=== PATIENT | female | born 1995 | race Caucasian/White ===

== ENCOUNTER → 2024-02-05 10:43 | Outpatient (CLI) | payer OTHER, SELFPAY ==
[2024-02-05 11:35] LABS: Add Manual Diff / Slide Review NO; Basophils Absolute Auto 0 /uL (0-100); Basophils Percent Auto 0.5 % (0-2); Eosinophils Absolute Auto 100 /uL (0-450); Eosinophils Percent Auto 1.1 % (2-4); Hematocrit 39.1 % (36-46); Hemoglobin 13.5 g/dL (12.0-16.0); Lymphocytes Absolute Auto 2100 /uL (1100-4500); Lymphocytes Percent Auto 20.1 % (25-40); Mean Corpuscular HGB Conc 34.6 % (30-36); Mean Corpuscular Hemoglobin 31.2 PG (26-34); Monocytes Absolute Auto 500 /uL (0-900); Monocytes Percent Auto 5.2 % (3-14); Neutrophils Absolute Auto 7600 /uL (1500-7000); Neutrophils Percent Auto 73.1 % (50-75); Platelet Count 379 X10^3/uL (150-400); Red Blood Cell Count 4.35 X10^6/uL (4.0-5.2); Red Cell Distribution Width 12.9 % (11.6-14.8); White Blood Cell Count 10.3 X10^3/uL (4.5-11.0)
[2024-02-05 11:40] LABS: Hemoglobin A1C% w Est Avg Glu 4.8 % (4.0-6.0)
[2024-02-05 11:59] LABS: Natera Collection Specimen Collected
[2024-02-05 12:20] LABS: Hepatitis B Surface Antigen NEGATIVE s/c (NEGATIVE)
[2024-02-05 12:36] LABS: HIV 1 & 2 Ab/Ag 4th Gen Combo NEGATIVE (NEGATIVE); Hep C Virus Ab w/Reflex Quant NEGATIVE s/c (NEGATIVE)
[2024-02-06 11:41] LABS: RPR Screen Non Reactive (Non Reactive); Varicella IgG Antibody 591 index (Immune >165)
== END ==
PROVIDERS: Referring Provider Student in an Organized Health Care Education/Training Program; Visit Provider Student in an Organized Health Care Education/Training Program
DX: Z34.81 Encounter for supervision of other normal pregnancy, first trimester (principal); N92.6 Irregular menstruation, unspecified; Z83.3 Family history of diabetes mellitus; Z3A.11 11 weeks gestation of pregnancy
CPT/HCPCS: 36415; 80055; 83036; 86787; 86803; 86850; 86900; 86901; 87086; 87389

== ENCOUNTER → 2024-03-04 11:24 | Outpatient (CLI) | payer OTHER, SELFPAY ==
[2024-03-07 20:36] LABS: AFP Value 28.4 ng/mL (.); Gest Age on Col Date 15.9 weeks (.); Insulin Dep Diabetes No (.); OSBR Risk 1IN 10000 (.); Results Report (.); Test Results *Screen Negative* (.)
== END ==
PROVIDERS: Referring Provider Student in an Organized Health Care Education/Training Program; Visit Provider Student in an Organized Health Care Education/Training Program
DX: Z34.82 Encounter for supervision of other normal pregnancy, second trimester (principal); Z3A.15 15 weeks gestation of pregnancy
CPT/HCPCS: 36415; 82105

== ENCOUNTER → 2024-04-14 14:27 | Outpatient (CLI) | payer OTHER, SELFPAY ==
--- NOTE | 2024-04-14 14:28 | DI.US.S_ITS ---
PROCEDURE: US OB >= 14 WEEKS FETUS INDICATIONS: 20 Week Anatomy Scan OUTSIDE/PRIOR DATING DATA: Last menstrual period (LMP): 11/14/2023. LMP-based estimated date of delivery (ADEN): 08/20/2024. First dating scan (date and location): Not applicable. Estimated date of delivery (ADEN) from first dating scan: Not applicable. The calculations are made using the clinical ADEN of 08/20/2024. TECHNIQUE: Real-time scanning was performed of the fetus, with image documentation and biometric measurements. Endovaginal scanning: No COMPARISON: None. FINDINGS: General: A single living intrauterine gestation is present. Presentation: Breech. Placenta: Placental position is anterior , without previa. Amniotic fluid index: 14.0 cm, normal range is 5-24 cm. Single deepest vertical pocket is 5.4 cm. heart rate: 141 beats per minute. Maternal cervical canal: 4.9 cm long. Normal lower limit is 2.5 cm. biometrics: Biparietal diameter: 5.6 cm, 23 week 1 day Head circumference: 20.8 cm, 22 week 6 day Abdominal circumference: 18.9 cm, 23 week 5 day Femur length: 3.9 cm, 22 week 2 day Clinically estimated gestational age: 21 week 5 day Composite gestational age from present scan: 23 week 0 day Estimated weight and percentile: 560 g, 97 percentile Anatomic survey: Neuro: Ventricles are non-dilated at less than 10 mm. Cisterna magna is normal at 3-11 mm. Cerebellum is normal in size and morphology. Nuchal skin fold: Normal at less than 6 mm between 14-21 weeks gestational age. Face: Nose and lips, facial profile are normal. Spine: No evidence for spina bifida. Heart: 4-chambered heart is present, with normal ventricular outflow tracts. Diaphragm: Diaphragm is intact. Stomach: Left-sided stomach is present. Kidneys: No hydronephrosis. Normal is less than 5 mm in 2nd trimester, less than 7 mm in 3rd trimester. Cord: 3-vessel cord has orthotopic insertion. Bladder: Normal in size. Extremities: All 4 extremities identified. IMPRESSION: Single live IUP consistent with 23 week 0 day gestation by current ultrasound Approved by: Tripp Oneal M.D. on 04/15/2024 at 18:23
== END ==
PROVIDERS: Referring Provider Student in an Organized Health Care Education/Training Program; Visit Provider Student in an Organized Health Care Education/Training Program
DX: Z34.82 Encounter for supervision of other normal pregnancy, second trimester (principal); Z3A.23 23 weeks gestation of pregnancy
CPT/HCPCS: 76811

== ENCOUNTER → 2024-05-16 10:25 | Outpatient (CLI) | payer OTHER, SELFPAY ==
[2024-05-16 12:18] LABS: Hematocrit 33.6 % (36-46); Hemoglobin 11.6 g/dL (12.0-16.0)
[2024-05-16 12:25] LABS: GTT (PREG) 1 Hour PP 50gm Dose 160 mg/dL (76-139)
== END ==
PROVIDERS: Referring Provider Student in an Organized Health Care Education/Training Program; Visit Provider Student in an Organized Health Care Education/Training Program
DX: O26.899 Other specified pregnancy related conditions, unspecified trimester (principal); Z13.1 Encounter for screening for diabetes mellitus; Z67.91 Unspecified blood type, Rh negative; Z13.0 Encounter for screening for diseases of the blood and blood-forming organs and certain disorders involving the immune mechanism
CPT/HCPCS: 36415; 82950; 85014; 85018; 86850

== ENCOUNTER → 2024-05-30 10:32 | Outpatient (CLI) | payer OTHER, SELFPAY ==
[2024-05-30 12:15] LABS: Glucose Fasting Gestational 78 mg/dL (76-95)
[2024-05-30 13:37] LABS: Glucose 2 Hour Gest 156 mg/dL (76-155)
[2024-05-30 13:39] LABS: Glucose 1 Hour Gest 166 mg/dL (76-180)
[2024-05-30 14:03] LABS: Glucose Tol Interp,Gestational INTERPRETATION
[2024-05-30 15:10] LABS: Glucose 3 Hour Gest 89 mg/dL (76-140)
== END ==
PROVIDERS: Referring Provider Student in an Organized Health Care Education/Training Program; Visit Provider Student in an Organized Health Care Education/Training Program
DX: O99.810 Abnormal glucose complicating pregnancy (principal)
CPT/HCPCS: 36415; 82951; 82952

== ENCOUNTER → 2024-07-02 12:40 | Outpatient (CLI) | payer OTHER, SELFPAY ==
--- NOTE | 2024-07-02 12:40 | DI.US.S_ITS ---
PROCEDURE: US OB FOLLOW UP INDICATIONS: Excessive weight gain during OUTSIDE/PRIOR DATING DATA: Last menstrual period (LMP): 11/14/2023. LMP-based estimated date of delivery (ADEN): 08/20/2024. First dating scan (date and location): 04/14/2024. Estimated date of delivery (ADEN) from first dating scan: Not applicable. The calculations are made using the clinical ADEN of 08/20/2024. TECHNIQUE: Real-time scanning was performed of the fetus, with image documentation and biometric measurements. Endovaginal scanning: Not performed COMPARISON: Ob ultrasound 04/14/2024. FINDINGS: General: A single living intrauterine gestation is present. Presentation: Vertex. Placenta: Placental position is anterior , without previa. Amniotic fluid index: 10.3 cm, normal range is 5-24 cm. Single deepest vertical pocket is 3.7 cm. heart rate: 153 beats per minute. Maternal cervical canal: 3.8 cm long. Normal lower limit is 2.5 cm. biometrics: Biparietal diameter: 8.3 cm Head circumference: 30.3 cm Abdominal circumference: 30.1 cm Femur length: 6.5 cm Clinically estimated gestational age: 33 weeks, 0 days Composite gestational age from present scan: 33 weeks, 5 days Estimated weight and percentile: 2279 g, 66th percentile Other: Not applicable. IMPRESSION: Single intrauterine gestation in vertex presentation with estimated gestational age of 33 weeks, 5 days by biometry. Normal SID. Appropriate growth with estimated weight percentile of 66%. Approved by: Cata Willoughby M.D.,Ph.D. on 07/03/2024 at 0:16
== END ==
LOC: US 12:40
PROVIDERS: Referring Provider Student in an Organized Health Care Education/Training Program; Visit Provider Student in an Organized Health Care Education/Training Program
DX: O26.03 Excessive weight gain in pregnancy, third trimester (principal); Z3A.33 33 weeks gestation of pregnancy
CPT/HCPCS: 76816

== ENCOUNTER → 2024-07-25 15:54 | Outpatient (CLI) | payer OTHER, SELFPAY ==
[2024-07-26 16:11] LABS: Strep Grp B PCR NEG for Grp B Strep
== END ==
PROVIDERS: Visit Provider Student in an Organized Health Care Education/Training Program
DX: Z34.93 Encounter for supervision of normal pregnancy, unspecified, third trimester (principal); Z3A.36 36 weeks gestation of pregnancy
CPT/HCPCS: 87653

== ENCOUNTER 2024-08-12 19:04 | Observation (INO) | payer OTHER, SELFPAY | END 2024-08-12 19:55 | disposition home or self-care (01) | LOC: LABOR 19:05 | PROVIDERS: Admitting Provider Student in an Organized Health Care Education/Training Program; Referring Provider Student in an Organized Health Care Education/Training Program; Visit Provider Student in an Organized Health Care Education/Training Program | DX: O47.1 False labor at or after 37 completed weeks of gestation (principal); Z3A.38 38 weeks gestation of pregnancy | CPT/HCPCS: 59025; G0378; G0379 ==

== ENCOUNTER 2024-08-12 22:33 | Inpatient (IN) | payer OTHER, SELFPAY ==
[2024-08-13] MEDS: fentaNYL 100 MCG/2 ML INJ 50 MCG IV (02:35)
[2024-08-13 02:36] LABS: Add Manual Diff / Slide Review NO; Basophils Absolute Auto 100 /uL (0-100); Basophils Percent Auto 0.4 % (0-2); Eosinophils Absolute Auto 100 /uL (0-450); Eosinophils Percent Auto 0.8 % (2-4); Hematocrit 36.5 % (36-46); Hemoglobin 12.3 g/dL (12.0-16.0); Lymphocytes Absolute Auto 2500 /uL (1100-4500); Lymphocytes Percent Auto 13.6 % (25-40); Mean Corpuscular HGB Conc 33.6 % (30-36); Mean Corpuscular Hemoglobin 28.6 PG (26-34); Mean Corpuscular Volume 85.1 fL (80-100); Monocytes Absolute Auto 1300 /uL (0-900); Monocytes Percent Auto 7.1 % (3-14); Neutrophils Absolute Auto 14500 /uL (1500-7000); Neutrophils Percent Auto 78.1 % (50-75); Platelet Count 343 X10^3/uL (150-400); Red Blood Cell Count 4.29 X10^6/uL (4.0-5.2); White Blood Cell Count 18.6 X10^3/uL (4.5-11.0)
[2024-08-13] MEDS: LACTATED RINGERS 500 ML 1000 ML IV (03:45)
--- NOTE | 2024-08-13 04:58 | PM.AN.REGBLK ---
Regional Block Pre-procedure Procedure: Continuous Lumbar Epidural for L&D Attending OB provider: Cherri Villalba PMH/ROS narrative: presents in spontaneous labor requesting lumbar epidural for labor pain. PSH/Anesthesia history narrative: Hymenectomy, EGD, wisdom teeth without anesthetic complications. Exam narrative: See pre-anesthesia evaluation form. ASA Class: II Labs: Hct 36.5 % (36-46) 08/13/24 02:15 Plt Count 343 X10^3/uL (150-400) 08/13/24 02:15 Medications: Current Medications Generic Name Dose Route Start Last Admin Trade Name Freq PRN Reason Stop Dose Admin Calcium Carbonate 1,000 mg 08/12/24 23:04 Calcium Carbonate 500 Mg Tab PO Q2HR PRN Dyspepsia Carboprost Tromethamine 250 mcg 08/12/24 23:04 Carboprost 250 Mcg/Ml Ampul IM Q90M PRN Bleeding Fentanyl 50 mcg 08/13/24 02:21 08/13/24 02:35 Fentanyl 100 Mcg/2 Ml Inj IV 50 mcg Q1H PRN Administration Pain, Severe (7-10) Oxytocin/Lactated Ringer's 30 unit in 500 mls @ 200 mls/hr 08/12/24 23:04 Oxytocin Premix IV CONT PRN Bleeding Protocol Tranexamic Acid 1,000 mg/ 100 mls @ 600 mls/hr 08/12/24 23:04 Sodium Chloride IV NOW PRN Bleeding Lactated Ringer's 1,000 mls @ 100 mls/hr 08/12/24 23:15 Lactated Ringers IV 08/13/24 09:14 CONT STUART Lidocaine HCl 20 ml 08/12/24 23:04 Lidocaine 1% 20 Ml INJ INTRA-OP PRN Post Delivery Methylergonovine Maleate 0.2 mg 08/12/24 23:04 Methylergonovine 0.2 Mg Tablet PO Q6HR PRN Heavy Bleeding Methylergonovine Maleate 0.2 mg 08/12/24 23:04 Methylergonovine 0.2 Mg/Ml Vial IM NOW PRN Bleeding Mineral Oil 30 ml 08/12/24 23:04 Mineral Oil 30 Ml Udc TOP PRN PRN Version Misoprostol 800 mcg 08/12/24 23:04 Misoprostol 200 Mcg Tablet VT NOW PRN Bleeding Misoprostol 400 mcg 08/12/24 23:04 Misoprostol 200 Mcg Tablet SL NOW PRN Bleeding Naloxone HCl 0.2 mg 08/12/24 23:04 Naloxone 0.4 Mg/Ml Vial IV Q2MIN PRN Opiate Reversal Ondansetron HCl 4 mg 08/12/24 23:04 Ondansetron 4 Mg/2 Ml Inj IV Q4HR PRN Nausea And Vomiting Oxytocin 10 unit 08/12/24 23:04 Oxytocin 10 Unit/Ml Vial IM NOW PRN Bleeding Allergies: Allergies Allergy/AdvReac Type Severity Reaction Status Date / Time No Known Drug Allergies Allergy Verified 08/12/24 23:09 Procedure Insertion date: 08/13/24 Insertion time: :24 Prep/Local: 1% lidocaine (5mL to L2/3 and 3mL to L1/2 interspace and CHG to back for sterile prep) Interspace: Initial attempt at L2/3 -> bone. Repeated at L1/2 successfully. Patient position: sitting Needle: 18 gauge Hustead (and 27g Pencan through hustead for CSE (1mL MPF bupivacaine intrathecal following + CSF)) Loss of resistance with: saline SHILPI at (cm): 7 (7.5) Catheter placed at SKIN (cm): 12 Catheter in SPACE (cm): 5 (4.5) Sensory level: T7 Insertion: No CSF, Yes Blood, Yes Paresthesia with insertion, No Paresthesia with injection and No Test dose reaction Initial Medications TEST DOSE time: 04:30 TEST DOSE: 1.5% lidocaine with epinephrine 1:200k (mL): 3 BOLUS DOSE time: 04:45 BOLUS DOSE (mL): 8 BOLUS DOSE med: other (infusate) Infusion INFUSION: 0.125% bupivacaine and with fentanyl 2 mcg/mL Initial rate (mL/hr): 8 Post-procedure Anesthesia date START: 08/13/24 Anesthesia time START: 04:08 Anesthesia date END: 08/13/24 Anesthesia time END: 15:54 Post-procedure Anesthesia Assessment: Yes CV function: HR/BP stable, Yes Resp function: RR/sat/airway adequate, Yes Post-op hydration adequate, Yes Pain control adequate, Yes Nausea & vomiting absent, Yes Temperature > 36 C, Yes Mental status appropriate and No Anesthesia complications
[2024-08-13] MEDS: ONDANSETRON 4 MG/2 ML INJ IV (05:40)
--- NOTE | 2024-08-13 08:55 | PM.OBHP.IH.1 ---
OB HPI Date/Time Date of admission: 08/12/24 Date Patient Seen: 08/13/24 Time Patient Seen: 07:00 History of Present Condition Chief complaint: contractions ADEN Calculator Estimated Delivery Date Method Current WG Current Estimate 08/20/24 LMP (Certain) 39w 2d Other Estimates 08/17/24 Ultrasound #1 39w 5d Estimated Gestational Age (weeks): 39w2d : 2 Para: 0 Narrative: 29yo at 39w2d d=8wk US admitted overnight to labor and delivery for expectant management of term labor. Pt presented to triage last evening with c/o increasing severity and frequency of contractions, initial SVE ftp/1cm with subsequent change to 2cm and desired admission for augmentation of term labor as indicated versus continued expectant management. This AM pt states strong sensation of pelvic pressure with interval change to 6cm with bulging forebag. Pt declines AROM at time of first assessment. course notable for low-risk cfDNA, excessive maternal weight gain without GDM, EFW 66th% per 3rd trimester US GBS negative care: good care Dating criteria OB: LMP confirmed by 1st trimester US Ultrasounds: normal mid trimester US Obstetrical complications: other (excessive maternal weight gain without macrosomia ) Medical complications OB: none Preadmission Labs Last OB Lab Results: Blood Type A Negative 08/13/24 02:15 Antibody Screen Negative 08/13/24 02:15 Hct 33.6 % (36-46) L 08/14/24 06:18 Hgb 11.2 g/dL (12.0-16.0) L 08/14/24 06:18 Hep Bs Antigen Negative s/c (NEGATIVE) 02/05/24 10:59 Hepatitis C Antibody Negative s/c (NEGATIVE) 02/05/24 10:59 Rubella Antibody 6.0 IU/mL (>15) L 02/05/24 10:59 VZV IgG Antibody 591 index (Immune >165) 02/05/24 10:59 Glucose 1 Hr 50 gm 160 mg/dL (76-139) H 05/16/24 10:32 Hemoglobin A1c 4.8 % (4.0-6.0) 02/05/24 10:59 Group B Strep (PCR) Neg for grp b strep 07/25/24 15:54 -: Chlamydia screen: negative and Gonorrhea screen: negative -: PAP smear: Normal Genetic Screens: Cell-free DNA: Normal and Alpha-fetoprotein: Normal Prior (ies) Past Pregnancies Del. Date GA/Weeks Labor Lgth Wt Sex Route Outcome Anesthesia Place Delv Breastfeed Preg Comp Name 12/09/21 8-10 spontaneous Delivery Date: 12/09/21 Last Updated by: Mary Alice Denise RN resolved spontaneously, no complications Evaluation Evaluation Baseline heart rate: 148 Variability: Moderate (11-25) monitor accelerations: Present Monitor Decelerations: Absent Contraction Frequency (minutes): 5 Uterine Contraction Intensity: Moderate Category of Tracing: Reactive Status: Category l Dilation (cm): 6 Effacement (%): 100 Dilation: >/=5 cm Effacement: >/=80% station: 0 Position of cervix: mid Consistency: soft Zavala score: 11 PFSH Medical History (Updated 08/14/24 @ 09:06 by Cherri Villalba DO) Irregular menses (~2006) Back pain Surgical History (Updated 02/21/24 @ 20:17 by Leslie Ontiveros) Anesthesia [place] teeth extracted History of hymenectomy (~2018) S/P breast lumpectomy (~12/2011) Family History (Updated 12/26/23 @ 08:14 by Mary Alice Denise RN) Father Back pain Aortic dissection Grandmother Heart disease Diabetes mellitus Morbid obesity Grandfather Heart disease Stroke Grandmother No problems noted. Grandfather No problems noted. 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 ) special odell needs: No travel history: over 6 months ago seatbelt use: always water heater temp set < 120 deg: Yes working smoke detector in home: Yes fire extinguisher in home: Yes carbon monox detector in home: Yes firearms in home: Yes firearms unloaded and locked: No (Pt will be buying a gun safe this year) do you feel safe at home: Yes Smoking Status: Former smoker second hand exposure: No alcohol intake: former (rarely when not ) substance use type: does not use during the past year weight has: remained stable well-balanced diet: about half the time daily servings fruits/ve-4 caffeine: Yes (~50-100mg/day) Type(s) of exercise: walking Meds Home Medications and Allergies Home Medications Medication Instructions Recorded Confirmed Type vit no.95-ferrous 1 tab PO DAILY 12/26/23 08/13/24 History fumarate 28 mg-folic acid 800 mcg tablet ( Multivitamins) Allergies Allergy/AdvReac Type Severity Reaction Status Date / Time No Known Drug Allergies Allergy Verified 08/12/24 23:09 Review of Systems Review of Systems ROS: Yes All systems reviewed with the patient and are negative except as otherwise documented OB Exam Vital signs Blood Pressure: 145/60 Pulse Rate: 75 Respiratory Rate: 20 Temperature: 97.6 F Narrative Exam Narrative: uncomfortable with contractions (BP prior to epidural placement) Resp Effort & Inspection: normal respiratory effort and able to speak in complete sentences Cardio Rate: regular rate Extremities Lower extremity: Yes normal to inspection GI Inspection: normal to inspection Other: aristides 7.5# External Female Exam: Yes normal external appearance Presentation: vertex Objective Labs 08/14/24 06:18 Labs: Laboratory Results - last 24 hr 08/13/24 02:15 WBC 18.6 H RBC 4.29 Hgb 12.3 Hct 36.5 MCV 85.1 MCH 28.6 MCHC 33.6 RDW 15.0 H Plt Count 343 Neut % (Auto) 78.1 H Lymph % (Auto) 13.6 L [place] % (Auto) 7.1 Eos % (Auto) 0.8 L Baso % (Auto) 0.4 Neut # (Auto) 35647 H Lymph # (Auto) 2500 [place] # (Auto) 1300 H Eos # (Auto) 100 Baso # (Auto) 100 Blood Type A Negative Antibody Screen Negative Assessment and Plan Assessment and Plan Assessment and Plan narrative: 29yo at 39w3d, HD2 following admission for expectant management of spontaneous term labor Term labor Cat 1 tracing, maternal VSS/afebrile pt declines AROM, reviewed recommendation for this intervention if no interval cervical change at time of next assessment (2-4h, sooner PRN) PNL as above, GBS negative patient is consented for vaginal, vaginal operative and delivery as well as transfusion of blood products as medically indicated anticipate Time-Based Coding :: [TOTAL MINUTES] spent with patient and on the chart (including review of chart, obtaining history, exam, reviewing outside data, placing orders, documenting exam and treatment plan, and counseling patient) on [DATE].
[2024-08-13] MEDS: LACTATED RINGERS 1,000 ML 100 ML IV (08:57)
[2024-08-13] MEDS: FENT 2MCG/ML BUPIV 0.125% EPI 200 MCG/100 ML PLAST..BAG 8 MCG EPIDURAL (10:27)
[2024-08-13] MEDS: LIDOCAINE 1% 20 ML INJ (16:15)
[2024-08-13 16:25] LABS: Base Excess Cord Venous Blood -6.4 (-7.7-1.9); Cord Venous Blood PCO2 31.2 (27-56); Cord Venous Blood PO2 36.7 (17-41); Cord Venous Blood pH 7.361 (7.25-7.45); HCO3 Cord Venous Blood 17.6; O2 Saturation Cord Venous Bld 68.9 (14-75)
--- NOTE | 2024-08-13 17:03 | PM.OBPRVD ---
Labor & Delivery Delivery date: 08/13/24 Intrapartal Events: Prolonged Labor > 20 hours, Prolonged Active Phase and Febrile Cervical ripening method: none Induction method: none Delivery monitor: external FHT and external uterine Route of delivery: Episiotomy description: None L&D Laceration Description: Labial (1st degree left labial laceration) Delivery repair: chromic Quantitative Blood Loss: 244 Anesthesia Type: Epidural Complications: None Narrative: Patient complete and pushed for 6 cc minutes. At 3:54 p.m., a live male delivered spontaneously in the KAYLEE presentation over an intact perineum. There was moderate meconium-stained amniotic fluid. A loose nuchal cord x1 was reduced on the perineum. The remainder of the body delivered without difficulty and was placed on mom's abdomen. The cord was double clamped and cut after 30 seconds. A piece of cord for cord pH was obtained. Cord bloods were obtained. Pitocin was given in the IV fluids. The placenta delivered intact with a three-vessel cord at 4:04 p.m.. The fundus was massaged to firm. The perineum and vagina were inspected and there was a first-degree left labial laceration which was repaired with 3-0 chromic in the usual fashion after 6 cc of 1% lidocaine were injected. Hemostasis was achieved. Apgars 8 at 1 minute and 9 at 5 minutes. Epidural analgesia. Local anesthetic for repair. . Mom and infant stable to recovery. Venous cord pH: 7.36. Arterial pH not available. Baby 1: Infant gender: Male Presentation: vertex Position: Right Occiput Anterior Placenta delivery description: Spontaneous Cord Vessel Description: 3 Vessels, Nuchal Cord, Loose, Reduced (on the perineum) and Clamped/Cut (after 30 sec in order to obtain cord for pH) score (1 min): 8 score (5 min): 9 weight: 8 lb 1 oz Plan for aftercare: Routine care
[2024-08-13] MEDS: LANOLIN OINT 7 GM 1 APPLIC TOP (17:59)
[2024-08-13] MEDS: WITCH HAZEL/GLYCERIN PADS 1 EACH TOP ×2 (17:59→23:14)
[2024-08-13] MEDS: IBUPROFEN 600 MG TABLET PO (18:00)
[2024-08-13] MEDS: DERMOPLAST SPRAY 20% 60 ML 1 SPRAY TOP ×2 (18:00→23:13)
[2024-08-13] MEDS: ACETAMINOPHEN 325 MG TABLET 650 MG PO (18:00)
[2024-08-14 06:35] LABS: Add Manual Diff / Slide Review NO; Basophils Absolute Auto 100 /uL (0-100); Basophils Percent Auto 0.5 % (0-2); Eosinophils Absolute Auto 200 /uL (0-450); Eosinophils Percent Auto 0.7 % (2-4); Hematocrit 33.6 % (36-46); Hemoglobin 11.2 g/dL (12.0-16.0); Lymphocytes Absolute Auto 3100 /uL (1100-4500); Lymphocytes Percent Auto 12.6 % (25-40); Mean Corpuscular HGB Conc 33.2 % (30-36); Mean Corpuscular Hemoglobin 28.7 PG (26-34); Mean Corpuscular Volume 86.3 fL (80-100); Monocytes Absolute Auto 1500 /uL (0-900); Neutrophils Absolute Auto 19500 /uL (1500-7000); Neutrophils Percent Auto 80.2 % (50-75); Platelet Count 295 X10^3/uL (150-400); Red Cell Distribution Width 15.7 % (11.6-14.8); White Blood Cell Count 24.3 X10^3/uL (4.5-11.0)
--- NOTE | 2024-08-14 09:01 | PM.OBDS.1 ---
Discharge Providers Provider Date of admission: 08/12/24 22:33 Discharge Date: 08/14/24 Primary care physician: Gaudencio LUTZ Provider Consults: 08/12/24 23:04 Consult to Anesthesiology Urgent Comment: Consulting Provider: Anesthesiologist Reason for consultation: Epidural 08/14/24 17:00 Consult to Marble Polisher Hand Routine Comment: Discharge provider: Cherri Villalba DO Summary Hospital Course Date Patient Seen: 08/14/24 Time Patient Seen: 09:01 Diagnoses: Term gestation at 39+0wks Rh negative status Rubella nonimmune Hospital Course: 29yo [id number] admitted at 39+0wks in early labor. She progressed to an uncomplicated spontaneous vaginal delivery, productive of a viable male infant with APGARs 8/9. Her course was unremarkable. On day #1, she was ambulating, tolerating regular diet, voiding spontaneously with minimal lochia. Her pain was well controlled with oral medications, thus she was discharged to home on day #1. Peripartum Data Infant Delivery Method: Natural Vaginal Laceration Description: Labial Procedures: External monitoring Epidural anesthesia Spontaneous vaginal delivery Labial laceration repair complications: none 1: Gender: Male Disposition of : home Discharge Diagnosis (1) Normal spontaneous vaginal delivery: Status: Acute (2) Rh negative state in antepartum period: Status: Acute (3) Rubella non-immune status, antepartum: Status: Acute (4) Excess weight gain in : Status: Acute (5) Abnormal O'Diaz glucose challenge test, antepartum: Status: Acute Status at Discharge Cognitive/behavioral status at discharge: oriented Functional status at discharge: independent ambulation Overall status at discharge: patient is progressing back to baseline Time Spent with Patient Time attestation: Total time spent providing and/or coordinating discharge services: Time spent: Less than 30 minutes Objective Labs 08/14/24 06:18 Labs: Laboratory Results - last 24 hr 08/13/24 08/14/24 16:21 06:18 WBC 24.3 H RBC 3.90 L Hgb 11.2 L Hct 33.6 L MCV 86.3 MCH 28.7 MCHC 33.2 RDW 15.7 H Plt Count 295 Neut % (Auto) 80.2 H Lymph % (Auto) 12.6 L [place] % (Auto) 6.0 Eos % (Auto) 0.7 L Baso % (Auto) 0.5 Neut # (Auto) 05146 H Lymph # (Auto) 3100 [place] # (Auto) 1500 H Eos # (Auto) 200 Baso # (Auto) 100 Cord VBG pH 7.361 Cord VBG pCO2 31.2 Cord VBG pO2 36.7 Cord VBG HCO3 17.6 Cord VBG Base Excess -6.4 Cord VBG O2 Sat 68.9 Maternal Bleed Negative Exam Vital Signs (past 8 hours): vitals reviewed in OBIX, within normal parameters Const General: cooperative, healthy appearing, comfortable and No acute distress Resp Effort & Inspection: normal respiratory effort GI Inspection: normal to inspection Other: fundus firm and nontender at U-2 Skin General: no rashes or lesions noted Neuro General: patient alert and patient awake Extrem General: normal to inspection, no pedal edema and no calf tenderness Psych Mood: congruent mood Affect: normal affect Discharge Plan Discharge Plan Patient Disposition: Home Provider Discharge Comment: Take ibuprofen 400mg every 6hrs or acetaminophen 650mg every 6hrs as needed for pain. Avoid placing anything in the vagina for at least 6 weeks. Discharge orders & Medications Prescriptions: Continued PNV cmb#95-ferrous fumarate-FA [ Multivitamins] 28 mg iron- 800 mcg tablet 1 tab PO DAILY Follow up/Referrals: Cherri Villalba DO [Physician] - Diet/Activity/Treatments Diet: Diet as Tolerated Activity: As tolerated. Skin/Wound/Dressing Care Report to your healthcare provider any signs of infection, such as:: chills, fever, increased pain, unusual drainage and unusual redness Visit Report/Discharge Packet Instructions: DI for Labor and Delivery, Vaginal Stand Alone Forms: Patient Portal/API, Stroke Signs & Symptoms Discharge Data Primary Care Provider: ProviderGaudencio
[2024-08-14] MEDS: RHO(D) IMMUNE GLOBULIN 1,500 UNIT SYRINGE 1500 UNIT IM (16:08)
[2024-08-14 18:28] VITALS: BP 123/65; PULSE 68; RESP 16; TEMP 37
[2024-08-15 11:19] VITALS: BP 145/60; PULSE 75; RESP 20; TEMP 36.4
== END 2024-08-14 17:15 | disposition home or self-care (01) | DRG 806 ==
PROVIDERS: Obstetrics & Gynecology; Admitting Provider Student in an Organized Health Care Education/Training Program; Referring Provider Student in an Organized Health Care Education/Training Program; Visit Provider Student in an Organized Health Care Education/Training Program
DX: O63.1 Prolonged second stage (of labor) (principal); O47.1 False labor at or after 37 completed weeks of gestation; Z37.0 Single live birth; O70.0 First degree perineal laceration during delivery; Z3A.39 39 weeks gestation of pregnancy; Z67.11 Type A blood, Rh negative; Z3A.38 38 weeks gestation of pregnancy
CPT/HCPCS: 36415; 59025; 59050; 82803; 85025; 85461; 86850; 86900; 86901; G0378; G0379; J2405; J2790; J3010

== ENCOUNTER 2024-08-19 09:30 | Emergency (ER) | payer OTHER, SELFPAY ==
[2024-08-19 09:40] VITALS: BP 112/76; PULSE 86; RESP 22; TEMP 36.7; O2SAT 95; BMI 32.1
--- NOTE | 2024-08-19 09:45 | DI.US.S_ITS ---
PROCEDURE: US PELVIC COMPLETE INDICATIONS: SEVERE RIGHT PELVIC PAIN. 6 DAYS TECHNIQUE: Real-time scanning was performed of the pelvic organs, with image documentation. Additional endovaginal scanning was necessary due to incomplete visualization of the adnexal and endometrial structures by transabdominal scanning. COMPARISON: None. FINDINGS: Uterus: Uterus is anteverted and enlarged in size at 18.9 x 8.0 x 10.7 cm. The myometrium is heterogeneous. The endometrium measures 4.3 mm combined thickness. Ovaries: The right ovary measures 2.6 x 3.1 x 1.8 cm, with a calculated ovarian volume of 7.6 cc. The right ovary is visualized but not well evaluated. The left ovary is not seen. Other: No pathologic free abdominal or pelvic fluid. IMPRESSION: Enlarged uterus, consistent with recent status. Endometrium is normal in thickness. Right ovary is visualized and normal in size but not well evaluated. The left ovary is not seen. We strive to produce accurate, complete, and clear reports of imaging services. To assist us in improving patient care, this report was composed using standard report templates and voice recognition software. Therefore, it may contain abnormal punctuation, insertions and/or omissions. Occasional wrong-word or sound-alike substitutions may occur. Though we review the report and make efforts to correct it, we do recommend that the report be read carefully in proper context to recognize any text inaccuracies. Dictated by: Chicho Corral M.D. on 08/19/2024 at 11:34 Approved by: Chicho Corral M.D. on 08/19/2024 at 11:36
--- NOTE | 2024-08-19 10:05 | ED.ABDPAIN ---
HPI - Abdominal Pain General Chief Complaint: Abdominal Pain Stated Complaint: ovarian px level 10 gave 4 days ago Time Seen by Provider: 08/19/24 10:02 Source: patient Mode of arrival: Wheelchair History of Present Illness HPI narrative: 29-year-old female now day 6 status post vaginal delivery viable term here by Dr. Oneill, who was covering for her provider Dr. Whatley, unremarkable delivery per patient, felt feverish 2nd day, no fever, not taking antibiotics, now having right lower quadrant discomfort this morning, lochia rubra unchanged, no cough or shortness of breath, no chest discomfort, denies flank pain or frequency of urination. She has not tried any medication for the discomfort thus far. Related Data Home Medications Medication Instructions Recorded Confirmed vit no.95-ferrous 1 tab PO DAILY 12/26/23 08/13/24 fumarate 28 mg-folic acid 800 mcg tablet ( Multivitamins) Allergies Allergy/AdvReac Type Severity Reaction Status Date / Time acetaminophen [From Percocet] Allergy Verified 08/19/24 09:48 oxycodone Allergy Verified 08/19/24 09:48 Review of Systems Review of Systems Narrative: See HPI Patient History Medical History (Updated 08/19/24 @ 12:16 by Chris Godfrey MD) Irregular menses (~2006) Back pain Surgical History (Updated 02/21/24 @ 20:17 by Leslie Ontiveros) Anesthesia [place] teeth extracted History of hymenectomy (~2018) S/P breast lumpectomy (~12/2011) Family History (Updated 12/26/23 @ 08:14 by Mary Alice Denise RN) Father Back pain Aortic dissection Grandmother Heart disease Diabetes mellitus Morbid obesity Grandfather Heart disease Stroke Grandmother No problems noted. Grandfather No problems noted. 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 ) special odell needs: No travel history: over 6 months ago seatbelt use: always water heater temp set < 120 deg: Yes working smoke detector in home: Yes fire extinguisher in home: Yes carbon monox detector in home: Yes firearms in home: Yes firearms unloaded and locked: No (Pt will be buying a gun safe this year) do you feel safe at home: Yes Smoking Status: Former smoker second hand exposure: No alcohol intake: former (rarely when not ) substance use type: does not use during the past year weight has: remained stable well-balanced diet: about half the time daily servings fruits/ve-4 caffeine: Yes (~50-100mg/day) Type(s) of exercise: walking Smoking Status: Former smoker alcohol intake frequency: holidays/special occasions only Substance Use Type: does not use Exam Narrative Exam Narrative: GENERAL: Well-developed patient, in mild distress. HEAD: Atraumatic. Normocephalic. EYES: Pupils equal round and reactive. Extraocular motions intact. No scleral icterus. No injection or drainage. ENT: Nose without bleeding, purulent drainage. Throat without erythema, tonsillar hypertrophy or exudate. Airway patent. NECK: Trachea midline. Non tender CARDIOVASCULAR: Regular rate and rhythm without murmurs, gallops, or rubs. RESPIRATORY: Clear to auscultation. Breath sounds equal bilaterally. No wheezes, rales, or rhonchi. Mild tenderness right lower quadrant area, no obvious ventral hernia, no guarding or rebound tenderness. GASTROINTESTINAL: Abdomen soft, non-tender, nondistended. EXTREMITIES: No edema or joint tenderness. BACK: Nontender without deformity or crepitance. No flank tenderness. NEURO: AOx3. Motor functions grossly nonfocal SKIN: No rash or erythema of visible areas Initial Vital Signs Initial Vital Signs: Vital Signs Temperature 98.0 F 08/19/24 09:40 Pulse Rate 86 08/19/24 09:40 Respiratory Rate 22 08/19/24 09:40 Blood Pressure 112/76 08/19/24 09:40 Pulse Oximetry 95 08/19/24 09:40 Oxygen Delivery Method Room Air 08/19/24 09:40 Course Orders Ordered: Discontinued Medications Ketorolac Tromethamine (Ketorolac 30 Mg/Ml Vial) 15 mg IV NOW ONE Stop: 08/19/24 10:15 Last Admin: 08/19/24 10:23 Dose: 15 mg Documented By: MPO Vital Signs Vital signs: Vital Signs - 8 hr 08/19/24 12:22 Pulse Rate 80 Respiratory Rate 20 Blood Pressure 110/72 Pulse Oximetry 100 Oxygen Delivery Method Room Air MDM - Abdominal Pain Lab Data Attestation: I reviewed the patient's lab results. Lab results narrative: White blood cell count 51336, hemoglobin 12.8, platelets [id number] slight elevation, basic metabolic panel unremarkable. Liver functions unremarkable. Lactate normal. 08/19/24 10:15 08/19/24 10:15 Labs: Lab Results 08/19/24 Range/Units 10:15 WBC 11.2 H (4.5-11.0) X10^3/uL RBC 4.46 (4.0-5.2) X10^6/uL Hgb 12.8 (12.0-16.0) g/dL Hct 38.6 (36-46) % MCV 86.6 (80-100) fL MCH 28.6 (26-34) PG MCHC 33.1 (30-36) % RDW 15.7 H (11.6-14.8) % Plt Count 503 H (150-400) X10^3/uL Neut % (Auto) 68.1 (50-75) % Lymph % (Auto) 20.6 L (25-40) % Randall % (Auto) 5.0 (3-14) % Eos % (Auto) 5.7 H (2-4) % Baso % (Auto) 0.6 (0-2) % Neut # (Auto) 7600 H (4106-4301) /uL Lymph # (Auto) 2300 (4583-0974) /uL Randall # (Auto) 600 (0-900) /uL Eos # (Auto) 600 H (0-450) /uL Baso # (Auto) 100 (0-100) /uL Sodium 136 L (137-145) mmol/L Potassium 4.9 (3.4-5.1) mmol/L Chloride 108 H (98-107) mmol/L Carbon Dioxide 22 (22-32) mmol/L BUN 15 (7-17) mg/dL Creatinine 0.76 (0.52-1.04) mg/dL Estimated GFR > 60 (>60) mL/min BUN/Creatinine Ratio 19.7 (6-22) Glucose 85 (70-100) mg/dL Lactate 1.2 (0.7-2.1) mmol/L Calcium 9.3 (8.4-10.2) mg/dL Total Bilirubin 0.8 (0.2-1.3) mg/dL AST 54 H (14-36) IU/L ALT 41 H (<35) IU/L Alkaline Phosphatase 138 H (38-126) U/L Total Protein 7.1 (6.3-8.2) g/dL Albumin 3.9 (3.5-5.0) g/dL Globulin 3.2 (1.7-4.1) g/dL Albumin/Globulin Ratio 1.2 (1.0-2.8) Imaging Data Pelvic ultrasound: Radiologist's Impression: Close Pelvis Ultrasound (Signed) [facility] - 08/19/[address] [id number] Ultrasound Report Signed Patient: Lona Martin MR#: [id number] : 1995 Acct:[id number] Age/Sex: 29 / F Date of Service: 08/19/24 Loc: ED Accession Number: [id number] Procedure: US pelvic complete Ordering Provider: Chris Godfrey MD PROCEDURE: US PELVIC COMPLETE INDICATIONS: SEVERE RIGHT PELVIC PAIN. 6 DAYS TECHNIQUE: Real-time scanning was performed of the pelvic organs, with image documentation. Additional endovaginal scanning was necessary due to incomplete visualization of the adnexal and endometrial structures by transabdominal scanning. COMPARISON: None. FINDINGS: Uterus: Uterus is anteverted and enlarged in size at 18.9 x 8.0 x 10.7 cm. The myometrium is heterogeneous. The endometrium measures 4.3 mm combined thickness. Ovaries: The right ovary measures 2.6 x 3.1 x 1.8 cm, with a calculated ovarian volume of 7.6 cc. The right ovary is visualized but not well evaluated. The left ovary is not seen. Other: No pathologic free abdominal or pelvic fluid. IMPRESSION: Enlarged uterus, consistent with recent status. Endometrium is normal in thickness. Right ovary is visualized and normal in size but not well evaluated. The left ovary is not seen. We strive to produce accurate, complete, and clear reports of imaging services. To assist us in improving patient care, this report was composed using standard report templates and voice recognition software. Therefore, it may contain abnormal punctuation, insertions and/or omissions. Occasional wrong-word or sound-alike substitutions may occur. Though we review the report and make efforts to correct it, we do recommend that the report be read carefully in proper context to recognize any text inaccuracies. Dictated by: Chicho Corral M.D. on 08/19/2024 at 11:34 Approved by: Chicho Corral M.D. on 08/19/2024 at 11:36 [facility] Narrative Medical decision making narrative: 29-year-old female now day [address] after vaginal delivery here Dr. Oneill, now with right lower quadrant discomfort, some tenderness on exam, lochia rubra. Afebrile, sirs screen negative. Patient in discomfort, we would like pain medication, would prefer not having opiates, IV Toradol ordered. Labs pending. Ultrasound pelvis ordered. Keep NPO for now. Ultrasound shows no unusual endometrial thickening given 6 days status, no inflammatory change. Left ovary not seen. Right ovary unremarkable, no mention of any inflammatory changes or free fluid in the pelvis or problems with blood flow to that kidney. See radiology report. Patient seems to feel more comfortable after IV Toradol dose. Discharge home, follow up with her OB provider Dr. Villalba as planned. Return precautions discussed. No antibiotics for now. They did not have any further questions when asked. Discharge Plan Departure Patient Disposition: Home Clinical Impression: Abdominal pain Instructions: DI for Abdominal Pain-Adult Activity Restrictions/Additional Instructions: Right lower pelvic/abdominal discomfort, day 6 post status from vaginal live term gestational age infant. No fever on triage. No obvious urine infection. Blood testing essentially unremarkable. Ultrasound pelvis showed endometrial thickening consistent with state, no inflammatory changes, no right adnexal/ovarian changes mentioned. Copy of the ultrasound report provided for discharge. Follow up with your obstetrics provider Dr. Whatley as planned. Take [id number] Tylenol and or ibuprofen as needed for discomfort. Return earlier to this/nearest emergency department for any change worsening symptoms or any concerns prior Prescriptions: No Action PNV cmb#95-ferrous fumarate-FA [ Multivitamins] 28 mg iron- 800 mcg tablet 1 tab PO DAILY Referrals: ProviderGaudencio [Primary Care Provider] - Stand Alone Forms: Patient Portal/API/Survey
[2024-08-19 10:22] LABS: Add Manual Diff / Slide Review NO; Basophils Absolute Auto 100 /uL (0-100); Basophils Percent Auto 0.6 % (0-2); Eosinophils Absolute Auto 600 /uL (0-450); Eosinophils Percent Auto 5.7 % (2-4); Hematocrit 38.6 % (36-46); Hemoglobin 12.8 g/dL (12.0-16.0); Lymphocytes Absolute Auto 2300 /uL (1100-4500); Lymphocytes Percent Auto 20.6 % (25-40); Mean Corpuscular HGB Conc 33.1 % (30-36); Mean Corpuscular Hemoglobin 28.6 PG (26-34); Mean Corpuscular Volume 86.6 fL (80-100); Monocytes Absolute Auto 600 /uL (0-900); Neutrophils Absolute Auto 7600 /uL (1500-7000); Neutrophils Percent Auto 68.1 % (50-75); Platelet Count 503 X10^3/uL (150-400); Red Blood Cell Count 4.46 X10^6/uL (4.0-5.2); Red Cell Distribution Width 15.7 % (11.6-14.8); White Blood Cell Count 11.2 X10^3/uL (4.5-11.0)
[2024-08-19] MEDS: KETOROLAC 30 MG/ML VIAL 15 MG IV (10:23)
[2024-08-19 10:34] LABS: Alanine Aminotransferase 41 IU/L (<35); Albumin 3.9 g/dL (3.5-5.0); Albumin Globulin Ratio 1.2 (1.0-2.8); Alkaline Phosphatase 138 U/L (38-126); Aspartate Aminotransferase 54 IU/L (14-36); BUN Creatinine Ratio 19.7 (6-22); Bilirubin Total 0.8 mg/dL (0.2-1.3); Blood Urea Nitrogen 15 mg/dL (7-17); Calcium 9.3 mg/dL (8.4-10.2); Carbon Dioxide 22 mmol/L (22-32); Chloride 108 mmol/L (98-107); Estimated Glomerular Filt Rate > 60 mL/min (>60); Globulin 3.2 g/dL (1.7-4.1); Glucose 85 mg/dL (70-100); Lactate (Lactic Acid) 1.2 mmol/L (0.7-2.1); Potassium 4.9 mmol/L (3.4-5.1); Sodium 136 mmol/L (137-145); Total Protein 7.1 g/dL (6.3-8.2)
[2024-08-19 10:38] LABS: HEMOLYSIS 69 (0-50)
[2024-08-19 12:22] VITALS: BP 110/72; PULSE 80; RESP 20; O2SAT 100
== END 2024-08-19 12:24 | disposition home or self-care (01) ==
PROVIDERS: Emergency Provider Emergency Medicine
DX: O90.89 Other complications of the puerperium, not elsewhere classified (principal); R10.31 Right lower quadrant pain
CPT/HCPCS: 36415; 76856; 80053; 83605; 85025; 96374; 99284; J1885

== ENCOUNTER → 2025-03-20 08:23 | Outpatient (CLI) | payer OTHER, SELFPAY ==
[2025-03-20 12:18] LABS: Urine N gonorrhoeae NOT DETECTED
[2025-03-20 12:21] LABS: Urine Chlamydia NOT DETECTED
== END ==
PROVIDERS: Visit Provider Obstetrics & Gynecology
DX: Z11.3 Encounter for screening for infections with a predominantly sexual mode of transmission (principal)
CPT/HCPCS: 87491; 87591

== ENCOUNTER → 2025-04-17 12:26 | Outpatient (CLI) | payer OTHER, SELFPAY ==
[2025-04-17 12:52] LABS: Add Manual Diff / Slide Review NO; Hematocrit 40.7 % (36-46); Hemoglobin 14.2 g/dL (12.0-16.0); Lymphocytes Absolute Auto 2000 /uL (1100-4500); Mean Corpuscular HGB Conc 34.9 % (30-36); Mean Corpuscular Hemoglobin 30.9 PG (26-34); Mean Corpuscular Volume 88.6 fL (80-100); Platelet Count 383 X10^3/uL (150-400)
[2025-04-17 13:32] LABS: Natera Collection Specimen Collected
[2025-04-18 16:00] LABS: HIV 1 & 2 Ab/Ag 4th Gen Combo NEGATIVE (NEGATIVE); Hep C Virus Ab w/Reflex Quant NEGATIVE s/c (NEGATIVE); Hepatitis B Surface Antigen NEGATIVE s/c (NEGATIVE)
== END ==
PROVIDERS: Referring Provider Obstetrics & Gynecology; Visit Provider Obstetrics & Gynecology
DX: Z34.81 Encounter for supervision of other normal pregnancy, first trimester (principal); Z36.0 Encounter for antenatal screening for chromosomal anomalies
CPT/HCPCS: 36415; 80055; 86787; 86803; 86850; 86900; 86901; 87086; 87389

== ENCOUNTER → 2025-06-16 13:20 | Outpatient (CLI) | payer OTHER, SELFPAY ==
--- NOTE | 2025-06-16 13:21 | DI.US.S_ITS ---
PROCEDURE: US OB >= 14 WEEKS FETUS INDICATIONS: anatomy scan OUTSIDE/PRIOR DATING DATA: Last menstrual period (LMP): 01/17/2025 LMP-based estimated date of delivery (ADEN): 11/04/2025 The calculations are made using the working ADEN of 10/30/2025. TECHNIQUE: Real-time scanning was performed of the fetus, with image documentation and biometric measurements. Endovaginal scanning: Not performed COMPARISON: [facility], , US OB >= 14 WEEKS FETUS, 07/25/2024, 15:55. FINDINGS: General: A single living intrauterine gestation is present. Presentation: Transverse with head towards maternal left side. Placenta: Placental position is anterior, without previa. Amniotic fluid index: 15.1 cm, normal range is 5-24 cm. Single deepest vertical pocket is 4.4 cm. heart rate: 153 beats per minute. Maternal cervical canal: Closed and measures 3.9 cm long. Normal lower limit is 2.5 cm. biometrics: Biparietal diameter: 4.9 cm, 20 weeks, 5 days. Head circumference: 18.2 cm, 20 weeks, 4 days. Abdominal circumference: 15.3 cm, 20 weeks, 3 days. Femur length: 3.4 cm, 20 weeks, 4 days. Clinically estimated gestational age: 19 weeks, 6 days. Composite gestational age from present scan: 20 weeks, 4 days. Estimated weight and percentile: 359 g, 82%. Anatomic survey: Neuro: Ventricles are non-dilated at less than 10 mm. Cisterna magna is normal at 3-11 mm. Cerebellum is normal in size and morphology. Nuchal skin fold: Normal at less than 6 mm between 14-21 weeks gestational age. Face: Nose and lips, facial profile are normal. Spine: No evidence for spina bifida. Heart: 4-chambered heart and ventricular outflow tracts are not well seen due to position . Diaphragm: Diaphragm is intact. Stomach: Left-sided stomach is present. Kidneys: No hydronephrosis. Normal is less than 5 mm in 2nd trimester, less than 7 mm in 3rd trimester. Cord: 3-vessel cord has orthotopic insertion. Bladder: Normal in size. Extremities: All 4 extremities identified. IMPRESSION: 1. Single live intrauterine gestation with fetus in transverse presentation. heart rate is 153 beats per minute. Normal SID at 15.1 cm. Cervix is closed and measures 3.9 cm in length. 2. Normal growth. Estimated weight is at 82%. 3. cardiac structures are not well visualized due to position. Rest of the anatomic survey is normal. We strive to produce accurate, complete, and clear reports of imaging services. To assist us in improving patient care, this report was composed using standard report templates and voice recognition software. Therefore, it may contain abnormal punctuation, insertions and/or omissions. Occasional wrong-word or sound-alike substitutions may occur. Though we review the report and make efforts to correct it, we do recommend that the report be read carefully in proper context to recognize any text inaccuracies. Dictated by: Anselmo Wiseman M.D. on 06/16/2025 at 16:37 Approved by: Anselmo Wiseman M.D. on 06/16/2025 at 16:40
== END ==
PROVIDERS: Referring Provider Obstetrics & Gynecology; Visit Provider Obstetrics & Gynecology
DX: Z34.82 Encounter for supervision of other normal pregnancy, second trimester (principal); Z3A.20 20 weeks gestation of pregnancy
CPT/HCPCS: 76811

== ENCOUNTER → 2025-07-28 09:05 | Outpatient (CLI) | payer OTHER, SELFPAY ==
[2025-07-28 11:36] LABS: Add Manual Diff / Slide Review NO; Hematocrit 34.1 % (36-46); Hemoglobin 11.6 g/dL (12.0-16.0); Lymphocytes Absolute Auto 1800 /uL (1100-4500); Mean Corpuscular HGB Conc 34.2 % (30-36); Mean Corpuscular Hemoglobin 30.2 PG (26-34); Mean Corpuscular Volume 88.5 fL (80-100); Platelet Count 339 X10^3/uL (150-400)
[2025-07-28 11:56] LABS: GTT (PREG) 1 Hour PP 50gm Dose 117 mg/dL (76-139)
== END ==
PROVIDERS: Referring Provider Obstetrics & Gynecology; Visit Provider Obstetrics & Gynecology
DX: Z34.80 Encounter for supervision of other normal pregnancy, unspecified trimester (principal); Z3A.26 26 weeks gestation of pregnancy
CPT/HCPCS: 82950; 85025

== ENCOUNTER 2025-09-13 10:57 | Observation (INO) | payer OTHER, SELFPAY ==
[2025-09-13 11:34] LABS: Appearance Urine UA SL CLOUDY; Bilirubin Urine UA NEGATIVE (NEGATIVE); Color Urine UA YELLOW; Glucose Urine UA NEGATIVE (Negative); Ketones Urine UA TRACE (NEGATIVE); Leukocyte Esterase Urine UA NEGATIVE (NEGATIVE); Nitrite Urine UA NEGATIVE (Negative); Occult Blood Urine UA NEGATIVE (Negative); Protein Urine UA NEGATIVE (Negative); Specific Gravity Urine UA 1.025 (1.000-1.035); Urobilinogen Urine UA 0.2 E.U./dL (0.2)
[2025-09-13 11:44] LABS: Culture Indicated Urine Cult Not Indicated; pH Urine UA 6.0 (4.5-8.0)
--- NOTE | 2025-09-13 12:35 | DI.US.S_ITS ---
PROCEDURE: US OB >= 14 WEEKS FETUS INDICATIONS: status OUTSIDE/PRIOR DATING DATA: Last menstrual period (LMP): 09/13/2025. LMP-based estimated date of delivery (ADEN): 11/04/2025. First dating scan (date and location): [facility] on 06/16/2025. Estimated date of delivery (ADEN) from first dating scan: 10/30/2025. The calculations are made using the working ADEN of 10/30/2025. TECHNIQUE: Real-time scanning was performed of the fetus, with image documentation and biometric measurements. Endovaginal scanning: Not applicable COMPARISON: [facility], , OB >= 14 WEEKS FETUS, 06/16/2025, 13:49. FINDINGS: General: A single living intrauterine gestation is present. Presentation: Vertex. Placenta: Placental position is anterior , without previa. Amniotic fluid index: 13.1 cm, normal range is 5-24 cm. Single deepest vertical pocket is 4.7 cm. heart rate: 162 beats per minute. Maternal cervical canal: 4.4 cm long. Normal lower limit is 2.5 cm. biometrics: Biparietal diameter: 8.5 cm, 34 weeks 1 day Head circumference: 31.5 cm, 35 weeks 2 days Abdominal circumference: 33.1 cm, 37 weeks 0 days Femur length: 6.3 cm, 32 weeks 4 days Clinically estimated gestational age: 32 weeks 4 days Composite gestational age from present scan: 34 weeks 5 days Estimated weight and percentile: 2663 g, 99th percentile Anatomic survey: Heart: Not well visualized Biophysical profile: Tone: 2/2 Movement: 2/2 Respiration: 2 out of 2 Largest Pocket: 2/2 new line Total score: 8/8 IMPRESSION: Single living intrauterine gestation with fetus in vertex position. weight at the 99th percentile, concerning for possible macrosomia/large for gestational age. Poor visualization of the heart and outflow tracts, recommend short interval follow-up for further assessment. Biophysical profile of 88. We strive to produce accurate, complete, and clear reports of imaging services. To assist us in improving patient care, this report was composed using standard report templates and voice recognition software. Therefore, it may contain abnormal punctuation, insertions and/or omissions. Occasional wrong-word or sound-alike substitutions may occur. Though we review the report and make efforts to correct it, we do recommend that the report be read carefully in proper context to recognize any text inaccuracies. Dictated by: Huseyin Ortega M.D. on 09/13/2025 at 13:36 Approved by: Huseyin Ortega M.D. on 09/13/2025 at 13:41
--- NOTE | 2025-09-13 13:19 | PM.OBTRLD ---
Visit Information Visit Information Date of evaluation: 09/13/25 On-call OB Provider: Jaycee King Comments/Additional reasons for admission: 30yo at 32w4d here with lower abdominal cramping/low back pain. The pt reports feeling the pain earlier this morning, rhythmic in nature. She started timing it and it occurred every 3 minutes. No vaginal bleeding/LOF. [facility] Medical History (Updated 09/13/25 @ 13:23 by Jaycee King MD) Pelvic floor dysfunction in female Normal spontaneous vaginal delivery Rh negative state in antepartum period Irregular menses (~2006) Back pain Surgical History (Updated 02/21/24 @ 20:17 by Leslie Ontiveros) Anesthesia [place] teeth extracted History of hymenectomy (~2018) S/P breast lumpectomy (~12/2011) Family History (Updated 03/10/25 @ 08:11 by Mary Alice Denise RN) Father Back pain Aortic dissection Grandmother Heart disease Diabetes mellitus Morbid obesity Grandfather Stroke Grandmother No problems noted. Grandfather No problems noted. 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 ) special odell needs: No travel history: recent (domestic only) seatbelt use: always water heater temp set < 120 deg: Yes working smoke detector in home: Yes fire extinguisher in home: Yes carbon monox detector in home: Yes firearms in home: Yes firearms unloaded and locked: No (Pt will be buying a gun safe this year) do you feel safe at home: Yes second hand exposure: No alcohol intake: former (very rarely when not ) substance use type: does not use during the past year weight has: other (almost back to pre- weight) well-balanced diet: about half the time daily servings fruits/ve-4 caffeine: Yes (occasional single cup coffee) Type(s) of exercise: walking and resistance training duration: 45-60 minutes/day Objective Labs Labs: Laboratory Results - last 24 hr 09/13/25 11:25 Urine Color Yellow Urine Appearance Sl cloudy Urine pH 6.0 Ur Specific Mcloud 1.025 Urine Protein Negative Urine Glucose (UA) Negative Urine Ketones Trace H Urine Occult Blood Negative Urine Nitrate Negative Urine Bilirubin Negative Urine Urobilinogen 0.2 Ur Leukocyte Esterase Negative Urine RBC 0-1/hpf Urine WBC 0-1/hpf Ur Squamous Epith Cells >30 /hpf H Urine Bacteria Few (2-10) H Ur Culture Indicated? Cult not indicated Vol Urine Centrifuged 10ml (spun) Evaluation Evaluation Baseline heart rate: 140 Variability: Moderate (6-25) monitor accelerations: Present Monitor Decelerations: Absent Contraction Frequency (minutes): 3 Uterine Contraction Intensity: Mild Category of Tracing: Reactive Diagnosis, Plan/Disposition Final Diagnosis (1) contractions: Status: Acute Plan/Disposition Plan: 30yo at 32w4d here with lower abdominal cramping/low back pain. Noted to have contractions on monitor, palpating very mild. Cervical length long. Baby is noted to be 99th percentile for size. No increased intensity of pain while here for > 2hrs. Due to no cervical shortening, increasing intensity, pt elects for d/c home rather than Nifedipine. Discussed importance of hydration. Return precautions discussed. OB Disposition: home
== END 2025-09-13 13:19 | disposition home or self-care (01) ==
PROVIDERS: Family Medicine; Admitting Provider Obstetrics & Gynecology; Referring Provider Obstetrics & Gynecology; Visit Provider Obstetrics & Gynecology
DX: O47.03 False labor before 37 completed weeks of gestation, third trimester (principal); Z3A.32 32 weeks gestation of pregnancy
CPT/HCPCS: 59025; 59050; 76811; 76819; 81001; G0378; G0379